=== PATIENT | male | born 2000 | race Caucasian/White ===

== ENCOUNTER 2021-12-24 14:17 | Outpatient (CLI) | payer OTHER, SELFPAY ==
[2021-12-28 15:12] LABS: Quantiferon Mitogen 5.71 IU/mL; Quantiferon Nil 0.01 IU/mL; Quantiferon Plus TB1 0.02 IU/mL; Quantiferon TB Gold NEGATIVE (NEGATIVE)
== END 2021-12-24 14:18 | disposition home or self-care (01) ==
LOC: LAB 14:25
PROVIDERS: Visit Provider Surgery
DX: R76.11 Nonspecific reaction to tuberculin skin test without active tuberculosis (principal)
CPT/HCPCS: 86480

== ENCOUNTER 2021-12-31 15:06 | Outpatient (CLI) | payer OTHER, SELFPAY ==
[2021-12-31 15:40] LABS: Basophils # 0.1 10^3/uL (0.0-0.1); Basophils % 1.2 %; Eosinophils # 0.3 10^3/uL (0.0-0.8); Eosinophils % 5.6 %; Hematocrit 49.8 % (42.0-52.0); Hemoglobin 16.1 g/dL (11.7-16.6); Lymphocytes # 1.9 10^3/uL (0.8-4.8); Lymphocytes % 37.3 %; Mean Corpuscular HGB Conc 32.3 g/dL (30.0-36.0); Mean Corpuscular Hemoglobin 28.8 pg (28.0-34.0); Mean Corpuscular Volume 88.9 fl (80-94); Mean Platelet Volume 11.4 fL (7.4-10.4); Monocytes # 0.3 10^3/uL (0.2-0.9); Monocytes % 6.6 %; Neutrophils # 2.55 10^3/uL (1.8-7.7); Neutrophils % 49.1 %; Nucleated Red Blood Cells % 0 %; Platelet Count 261 10^3/cmm (130-400); Red Cell Distribution Width 12.5 % (12.1-15.1); White Blood Count 5.2 10^3/uL (4.0-10.0)
[2021-12-31 16:10] LABS: Anion Gap 15.8 (5-19); Blood Urea Nitrogen 17 mg/dL (6-20); Calcium 9.8 mg/dL (8.5-10.5); Carbon Dioxide 27 mmol/L (22-29); Chloride 105 mmol/L (98-107); Glucose 125 mg/dL (65-115); Osmolality Calculated 301 mOsm/kg (285-295); Potassium 3.8 mmol/L (3.5-5.1); Sodium 144 mmol/L (136-145)
== END 2021-12-31 15:07 | disposition home or self-care (01) ==
PROVIDERS: Visit Provider Surgery
DX: Z01.89 Encounter for other specified special examinations (principal)
CPT/HCPCS: 80048; 85025; 86787